=== PATIENT | female | born 1995 | race Caucasian/White ===

== ENCOUNTER 2017-12-06 09:53 | Inpatient (IN) | payer OTHER ==
[2017-12-06] MEDS ORDERED: CARBOPROST 250 MCG INJ IM (11:30)
[2017-12-06] MEDS ORDERED: MISOPROSTOL 200 MCG TAB PR (11:30)
[2017-12-06] MEDS ORDERED: OXYTOCIN 30 UNITS/LR 500 ML IV ×3 (11:30)
[2017-12-06] MEDS ORDERED: LIDOCAINE 1% (MPF) 30 ML INJ INJ (11:30)
[2017-12-06] MEDS ORDERED: METHYLERGONOVINE 0.2 MG INJ IM (11:30)
[2017-12-06] MEDS ORDERED: IBUPROFEN 600 MG TAB PO (11:30)
[2017-12-06] MEDS: LIDOCAINE 0.5% (SDV) 50 ML INJ INFIL (11:30)
[2017-12-06 12:14] LABS: ADD MAN DIFF? NO
[2017-12-06] MEDS: LACTATED RINGER'S 1,000 ML IV* ×3 (12:14→21:28)
[2017-12-06 12:16] LABS: BASOPHILS % 0.3 % (0.0-2.0); EOSINOPHILS # 0.2 10^3/ul (0.0-0.5); EOSINOPHILS % 1.7 % (0.0-7.0); HEMATOCRIT 35.5 % (37.0-47.0); HEMOGLOBIN 11.9 g/dl (12.0-16.0); LYMPHOCYTES # 1.6 10^3/ul (0.8-2.9); LYMPHOCYTES % 16.7 % (15.0-51.0); MEAN CORPUSCULAR HEMOGLOBIN 30.1 pg (29.0-33.0); MEAN CORPUSCULAR HGB CONC 33.5 g/dl (32.0-37.0); MEAN CORPUSCULAR VOLUME 89.6 fl (82.0-101.0); MEAN PLATELET VOLUME 11.6 fl (7.4-10.4); MONOCYTE # 0.6 10^3/ul (0.3-0.9); MONOCYTES % 6.6 % (0.0-11.0); NEUTROPHIL # 7.1 10^3/ul (1.6-7.5); NEUTROPHILS % 73.9 % (39.0-77.0); PLATELET COUNT 203 10^3/UL (140-415); RED BLOOD COUNT 3.96 10^6/ul (4.20-5.40)
[2017-12-06 12:16] LABS: WHITE BLOOD COUNT 9.6 10^3/ul (4.8-10.8)
[2017-12-06 12:35] LABS: INR 0.96; PROTIME 12.9 Sec (11.9-14.9)
[2017-12-06] MEDS ORDERED: MISOPROSTOL 25 MCG CAPSULE PO (13:00)
[2017-12-06] MEDS ORDERED: MISOPROSTOL 100 MCG TAB PO (13:00)
[2017-12-06] MEDS ORDERED: MISOPROSTOL 50 MCG CAPSULE PO (13:00)
[2017-12-06 13:30] LABS: HEPATITIS B SURFACE ANTIGEN NEGATIVE (NEGATIVE)
[2017-12-06 18:54] LABS: RAPID PLASMA REAGIN NONREACTIVE (NR)
[2017-12-06] MEDS: DINOPROSTONE 10 MG VAG SUPP VAG (18:59)
[2017-12-07] MEDS: LACTATED RINGER'S 1,000 ML IV* (06:11)
[2017-12-07] MEDS ORDERED: OXYTOCIN 30 UNITS/LR 500 ML IV ×3 (07:00→10:00)
[2017-12-07] MEDS ORDERED: MISOPROSTOL 200 MCG TAB PR ×2 (07:00→10:00)
[2017-12-07] MEDS ORDERED: CARBOPROST 250 MCG INJ IM ×2 (07:00→10:00)
[2017-12-07] MEDS ORDERED: CEFAZOLIN 2 GM/50 ML (PMX) 50 ML IV (07:00)
[2017-12-07] MEDS ORDERED: METHYLERGONOVINE 0.2 MG INJ IM ×2 (07:00→10:00)
[2017-12-07] MEDS ORDERED: FENTAnyl 50 MCG/ML VIAL (08:37)
[2017-12-07] MEDS ORDERED: morphine SULFATE/PF (10 MG/10 ML) INJ (08:37)
[2017-12-07] MEDS ORDERED: NEOSTIGMINE 3 MG/3 ML SYRINGE (08:51)
[2017-12-07] MEDS ORDERED: PHENYLephrine (100 MCG/ML) 5ML SYG (08:52)
[2017-12-07] MEDS ORDERED: ONDANSETRON 4 MG INJ (09:00)
[2017-12-07] MEDS ORDERED: DEXAMETHASONE 4 MG/ML 1 ML INJ (09:00)
[2017-12-07] MEDS: LACTATED RINGER'S 1,000 ML IV (09:46)
[2017-12-07] MEDS ORDERED: DIPHENHYDRAMINE 50 MG INJ IV (10:00)
[2017-12-07] MEDS ORDERED: HYDROmorphONE 0.5 MG/0.5 ML SYG IV (10:00)
[2017-12-07] MEDS ORDERED: NALOXONE (0.4 MG/ML) INJ IV (10:00)
[2017-12-07] MEDS ORDERED: LANOLIN 7 GM TUBE TOP (10:00)
[2017-12-07] MEDS ORDERED: ZOLPIDEM 5 MG TAB PO (10:00)
[2017-12-07] MEDS ORDERED: METHYLERGONOVINE 0.2 MG TAB PO (10:00)
[2017-12-07] MEDS: KETOROLAC 30 MG INJ IV ×2 (10:51→23:30)
[2017-12-07] MEDS: ONDANSETRON 4 MG INJ IV ×3 (10:51→17:38)
[2017-12-07] MEDS: OXYTOCIN 30 UNITS/LR 500 ML IV ×2 (11:02→15:07)
[2017-12-07] MEDS: HYDROmorphONE 0.5 MG/0.5 ML SYG IV (11:52)
[2017-12-07] MEDS: SENNA/DOCUSATE NA (8.6MG/50MG) TAB PO (21:25)
[2017-12-08] MEDS: LACTATED RINGER'S 1,000 ML IV (00:10)
[2017-12-08 08:57] LABS: ADD MAN DIFF? NO
[2017-12-08 08:58] LABS: WHITE BLOOD COUNT 13.8 10^3/ul (4.8-10.8)
[2017-12-08 08:58] LABS: BASOPHILS % 0.2 % (0.0-2.0); EOSINOPHILS % 0.1 % (0.0-7.0); HEMATOCRIT 28.3 % (37.0-47.0); HEMOGLOBIN 9.6 g/dl (12.0-16.0); LYMPHOCYTES # 2.1 10^3/ul (0.8-2.9); MEAN CORPUSCULAR HEMOGLOBIN 30.1 pg (29.0-33.0); MEAN CORPUSCULAR HGB CONC 33.9 g/dl (32.0-37.0); MEAN CORPUSCULAR VOLUME 88.7 fl (82.0-101.0); MEAN PLATELET VOLUME 11.9 fl (7.4-10.4); MONOCYTE # 0.8 10^3/ul (0.3-0.9); MONOCYTES % 5.8 % (0.0-11.0); NEUTROPHIL # 10.8 10^3/ul (1.6-7.5); NEUTROPHILS % 78.2 % (39.0-77.0); PLATELET COUNT 189 10^3/UL (140-415); RED BLOOD COUNT 3.19 10^6/ul (4.20-5.40); RED CELL DISTRIBUTION WIDTH 12.9 % (11.5-14.5)
[2017-12-08 09:22] LABS: ANION GAP 8 (5-13); BLOOD UREA NITROGEN 10 mg/dl (7-20); CALCIUM 8.4 mg/dl (8.4-10.2); CARBON DIOXIDE 22 mmol/L (21-31); CHLORIDE 105 mmol/L (97-110); CREATININE 0.54 mg/dl (0.44-1.00); Estimated GFR > 60 mL/min (>60); GLUCOSE 68 mg/dl (70-220); POTASSIUM 3.8 mmol/L (3.5-5.1); SODIUM 135 mmol/L (135-144)
[2017-12-08] MEDS: SENNA/DOCUSATE NA (8.6MG/50MG) TAB PO ×2 (09:45→20:47)
[2017-12-08] MEDS: HYDROCODONE/APAP (5/325) TAB PO ×3 (09:49→16:57)
[2017-12-08 15:57] LABS: RHOGAM PROFILE 1 1
[2017-12-08] MEDS: IBUPROFEN 800 MG TAB PO (16:56)
[2017-12-09] MEDS: HYDROCODONE/APAP (5/325) TAB PO ×4 (01:25→17:58)
[2017-12-09] MEDS: IBUPROFEN 800 MG TAB PO ×2 (06:11→15:44)
[2017-12-09] MEDS: SENNA/DOCUSATE NA (8.6MG/50MG) TAB PO ×2 (08:15→21:21)
[2017-12-10] MEDS: MAGNESIUM HYDROXIDE 30ML CUP PO (06:51)
[2017-12-10] MEDS: BISACODYL 10 MG SUPP PR (06:51)
[2017-12-10] MEDS: IBUPROFEN 800 MG TAB PO ×2 (07:07→14:45)
[2017-12-10 08:34] LABS: ADD MAN DIFF? NO
[2017-12-10 08:41] LABS: WHITE BLOOD COUNT 11.1 10^3/ul (4.8-10.8)
[2017-12-10 08:41] LABS: BASOPHILS % 0.4 % (0.0-2.0); EOSINOPHILS # 0.3 10^3/ul (0.0-0.5); EOSINOPHILS % 2.7 % (0.0-7.0); HEMATOCRIT 30.8 % (37.0-47.0); HEMOGLOBIN 10.4 g/dl (12.0-16.0); LYMPHOCYTES # 1.4 10^3/ul (0.8-2.9); LYMPHOCYTES % 12.4 % (15.0-51.0); MEAN CORPUSCULAR HEMOGLOBIN 30.6 pg (29.0-33.0); MEAN CORPUSCULAR HGB CONC 33.8 g/dl (32.0-37.0); MEAN CORPUSCULAR VOLUME 90.6 fl (82.0-101.0); MEAN PLATELET VOLUME 10.8 fl (7.4-10.4); MONOCYTE # 0.7 10^3/ul (0.3-0.9); MONOCYTES % 6.1 % (0.0-11.0); NEUTROPHIL # 8.7 10^3/ul (1.6-7.5); NEUTROPHILS % 77.9 % (39.0-77.0); PLATELET COUNT 222 10^3/UL (140-415); RED CELL DISTRIBUTION WIDTH 12.9 % (11.5-14.5)
[2017-12-10] MEDS: MEASLES,MUMPS,RUBELLA VACCINE INJ SC* (09:00)
[2017-12-10] MEDS: DIPHTH/TET/ACEL PERTUSS (ADULT) 0.5 ML VIAL IM* (09:00)
[2017-12-10] MEDS: SENNA/DOCUSATE NA (8.6MG/50MG) TAB PO (09:16)
== END 2017-12-10 16:34 | disposition home or self-care (01) | DRG 788 ==
LOC: OBT 09:53 → L-D 12-07 08:41 → OBT 10:57 → PP1 12-07 12:04 → L-D 10:45
PROVIDERS: Obstetrics & Gynecology
PROC: 3E0P7VZ Introduction of Hormone into Female Reproductive, Via Natural or Artificial Opening (ICD-10-PCS; 2017-12-06)
PROC: 10D00Z1 Extraction of Products of Conception, Low, Open Approach (ICD-10-PCS; principal; 2017-12-07)
DX: O62.0 Primary inadequate contractions (principal); O61.0 Failed medical induction of labor; O36.63X0 Maternal care for excessive fetal growth, third trimester, not applicable or unspecified; O66.2 Obstructed labor due to unusually large fetus; O99.02 Anemia complicating childbirth; D50.9 Iron deficiency anemia, unspecified; Z37.0 Single live birth; Z3A.40 40 weeks gestation of pregnancy; Z23 Encounter for immunization
CPT/HCPCS: 76815; 80048; 85025; 85610; 85730; 86592; 86850; 86870; 86885; 86900; 86901; 87340; 90686; 99464